=== PATIENT | male | born 1995 | race Caucasian/White ===

== ENCOUNTER 2020-05-02 09:03 | Emergency (ER) | payer BC ==
[~2020-05-02] VITALS: Ht 167.6 cm; Wt 68.2 kg
[2020-05-02 09:08] VITALS: BP 115/52
[2020-05-02] MEDS ORDERED: IBUPROFEN 600 MG TABLET PO ONE (09:45)
== END 2020-05-02 10:25 | disposition home or self-care (01) ==
LOC: EMS 09:03
DX: S46.911A Strain of unspecified muscle, fascia and tendon at shoulder and upper arm level, right arm, initial encounter (principal); V49.9XXA Car occupant (driver) (passenger) injured in unspecified traffic accident, initial encounter; Y93.89 Activity, other specified; Y92.488 Other paved roadways as the place of occurrence of the external cause; Y99.8 Other external cause status